=== PATIENT | female | born 1960 | race Caucasian/White ===

== ENCOUNTER 2024-02-07 00:13 | Emergency (ER) | payer MEDICARE, MEDICAID ==
[2024-02-07 00:20] VITALS: PULSE 83; O2SAT 97
== END 2024-02-07 01:54 | disposition left against medical advice (07) ==
LOC: ER 00:13
DX: R07.9 Chest pain, unspecified (principal); Z53.21 Procedure and treatment not carried out due to patient leaving prior to being seen by health care provider